=== PATIENT | female | born 2000 | race Caucasian/White ===

== ENCOUNTER → 2020-05-13 | Outpatient (CLI) | payer BC ==
[~2020-05-13] MED LIST: CONCERTA18 MG
== END ==
LOC: ZCOL.LAB 07:04
DX: Z20.828 Contact with and (suspected) exposure to other viral communicable diseases (principal)

== ENCOUNTER → 2020-07-14 | Outpatient (CLI) | payer BC | LOC: ZCOL.LAB 18:41 | DX: U07.1 COVID-19 (principal) ==